=== PATIENT | female | born 1955 | race Two or more races ===

== ENCOUNTER 2016-12-28 23:24 | Inpatient (IN) | payer SELFPAY ==
[2016-12-29] MEDS ORDERED: Acetaminophen TAB* 325 MG PO ONE (00:29)
[2016-12-29] MEDS ORDERED: Morphine INJ* 4 MG/ML 1 ML CARPUJECT IV ONE ×4 (00:37→13:09)
[2016-12-29] MEDS ORDERED: Ondansetron INJ* 2 MG/ML VIAL IV ONE (00:37)
[2016-12-29] MEDS ORDERED: Morphine INJ* 4 MG/ML 1 ML CARPUJECT ONE ×2 (00:40→07:07)
[2016-12-29] MEDS ORDERED: Ondansetron INJ* 2 MG/ML VIAL ONE (00:40)
[2016-12-29] MEDS ORDERED: NS 0.9% 1000 ML* 1,000 ML IV SCH (00:45)
[2016-12-29 01:33] LABS: Hematocrit 39 % (35-47); Hemoglobin 13.4 g/dl (12.0-16.0); Mean Corpuscular HGB Conc 34 g/dl (31-36); Mean Corpuscular Hemoglobin 30 pg (27-31); Mean Corpuscular Volume 88 fL (80-97); Mean Platelet Volume 8 um3 (7.4-10.4); Red Blood Count 4.45 10^6/ul (4.0-5.4); Red Cell Distribution Width 13 % (10.5-15); White Blood Count 12.9 10^3/ul (3.5-10.8)
[2016-12-29 01:38] LABS: Albumin 4.4 g/dL (3.2-5.2); BUN/Creatinine Ratio 20.8 (8-20); Calcium 9.6 mg/dL (8.6-10.3); EGFR African American 105.9 (>60); EGFR Non-African American 82.3 (>60); Globulin 3.4 g/dL (2-4); Potassium 3.5 mmol/L (3.5-5.0); Total Bilirubin 0.4 mg/dL (0.2-1.0); Total Protein 7.8 g/dL (6.4-8.9)
[2016-12-29] MEDS ORDERED: Tetan/Diph/Pertus SYR(Tdap)* 0.5 ML SYR(BOOSTRIX) use SYR IM ONE (02:35)
[2016-12-29] MEDS ORDERED: Lidocaine 2% EPI 1:200000 MPF* 20 ML VIAL INJ ONE (03:09)
[2016-12-29] MEDS ORDERED: Lidocaine 2% EPI 1:200000 MPF* 20 ML VIAL ONE (03:10)
--- NOTE | 2016-12-29 03:46 | ED ---
Progress - Progress Note Progress Note: Gaping V shaped wound over superior central/midline scalp - 2cm on one side, 1.75 cm on other - deep to muscle cleaned and irrigated cleaned w/ iodine Anesthesia with 2%lidocain w/ epi - successful One 3-0 prolene suture in central wound; either end of V closed w/ joe - #7 total covered with triple anbx ointment hemodynamically stable - pt tolerated well
[2016-12-29] MEDS ORDERED: oxyCODONE TAB* 5 MG TAB PO ONE ×2 (04:19→04:20)
--- NOTE | 2016-12-29 08:25 | RAD ---
indication: Laceration to occiput after falling down stairs. COMPARISON: None A CT scan of the brain, maxillofacial bones and c-spine was performed without intravenous contrast enhancement. Contiguous axial sections were obtained from the lung apices through the vertex of the skull. BRAIN: The ventricles, cisterns and sulci exhibit mild symmetrical involutional changes. There is mild periventricular and subcortical white matter hypoattenuation. No significant focal abnormality or mass effect is seen. The mata-white differentiation is adequately maintained. Evidence of a large laceration is seen overlying the right of midline posterior vertex and parietal bone. There is no evidence for intracranial hemorrhage. The calvarium is intact without radiographically apparent fracture. The mastoid air cells are appropriately aerated. FACIAL BONES: Bones: There is no displaced fracture or dislocation. The orbital rim is intact. The zygomatic arch is intact. The pterygoid plates are intact. Right greater than left degenerative changes of the temporomandibular joints includes right sided flattening of the mandibular condyle. Orbits: The globes are round. The optic nerves are symmetric. The extraocular musculature is normal. There is no post septal or intraconal inflammatory change. There is no retrobulbar hematoma. Paranasal Sinuses: There is mild mucosal thickening of the bilateral maxillary sinuses, ethmoid air cells and frontal sinuses. C-SPINE: On the sagittal view images the vertebral bodies and bilateral facet joints are correctly aligned. The dens is intact and the atlantoaxial interval is not widened. Mild degenerative changes include loss of intervertebral disc height at the mid-level and lower cervical spine. There is mild uncovertebral hypertrophy at the same levels. There is no prevertebral soft tissue swelling. There is no hyperdense material in the cervical canal to indicate hemorrhage. The visualized musculature and soft tissues are normal. There is right greater than left atherosclerotic calcification at the carotid bulbs. There is no gross lymphadenopathy visualized. The visualized portion of the lung apices are clear. IMPRESSION: 1. Evidence of scalp laceration overlying the right of midline posterior vertex and parietal bone without acute intracranial hemorrhage, calvarial fracture, facial bone fracture or dislocated fracture of the cervical spine. 2. Chronic and degenerative changes described in the body of the report.
--- NOTE | 2016-12-29 08:30 | RAD ---
INDICATION: Pain. Fall. COMPARISON: None TECHNIQUE: Noncontrast axial source images were obtained from the hemidiaphragms to the symphysis pubis. This examination was ordered using a renal stone protocol which is performed without oral or intravenous contrast and therefore has inherent limitations when used to evaluate other intra-abdominal or intrapelvic pathology. Consider conventional contrast enhanced imaging if clinically indicated Lung bases: The lung bases are clear. Liver: The liver is normal in size. Noncontrast imaging shows no evidence of a hepatic mass or ductal dilatation. Gallbladder: Cholelithiasis. The gallstone appears the neck of the gallbladder. There is mild gallbladder distention. Spleen: The spleen is normal in size. The noncontrast CT appearance is normal. Pancreas: Noncontrast imaging shows no pancreatic mass or ductal dilitation. The pancreas appears mildly atrophic Adrenal glands: No masses are identified. Kidneys/Bladder: There is no evidence of nephrolithiasis or CT evidence of hydronephrosis. Noncontrast imaging shows no evidence of a renal mass. The bladder is unremarkable.. Adenopathy: There is no evidence of intraperitoneal or retroperitoneal adenopathy. Evaluation is limited without oral contrast. Fluid collections: There are no free or localized fluid collections. Vessels: The aorta and iliac vessels are normal in caliber. There are no significant atherosclerotic changes. The IVC appears normal Pelvic organs: The uterus and adnexa appear normal GI tract: Evaluation of the bowel is limited without oral contrast. The stomach, small bowel, and lower GI tract appear grossly normal. There are no obstructive findings. The appendix is visualized and appears normal. Soft tissues: No soft tissue abnormalities of the extraperitoneal abdomen or pelvis are identified. Osseous structures: There is a mild superior end plate compression deformity of T12 without significant bony retropulsion. This is evaluated on the concurrent CT lumbar spine. Please for to separate report. IMPRESSION: 1. A limited noncontrast CT examination was ordered 2. Acute T12 compression deformity. Please refer also to separate CT lumbar spine report. 3. Cholelithiasis with gallstone in the neck of the gallbladder.
--- NOTE | 2016-12-29 08:33 | RAD ---
INDICATION: Low back pain status post fall. COMPARISON: Comparison is made with a prior CT of the abdomen and pelvis from December 29, 2016. TECHNIQUE: Contiguous axial sections were obtained beginning above the T12 vertebra and continuing through the L5-S1 disc space. Images were reconstructed in the sagittal and coronal planes. FINDINGS: There is a mild compression fracture of the superior endplate of the T12 vertebral body with loss of height of approximately 15%. There is mild retropulsion of fracture fragments of approximately 3 mm. No significant spinal canal narrowing is present. The posterior elements appear intact. No other fractures are seen. At the L2-L3 level there is a mild broad-based disc bulge. No significant spinal canal or neural foraminal narrowing is seen. At the L3-L4 level there is a mild broad-based disc bulge. There are mild hypertrophic changes within the facet joints. There is mild spinal canal narrowing. No neural foraminal narrowing is seen. At the L4-L5 level there is a mild broad-based disc bulge and mild hypertrophic changes within the facet joints. There is mild to moderate spinal canal narrowing. No significant neural foraminal narrowing is seen. The L5-S1 level there is a minimal broad-based disc bulge. There are mild hypertrophic changes within the facet joints. No significant spinal canal or neural foraminal narrowing is seen. Note is made of gallstones. IMPRESSION: 1. MILD COMPRESSION FRACTURE OF THE SUPERIOR ENDPLATE OF THE T12 VERTEBRAL BODY. 2. MILD TO MODERATE LUMBAR SPONDYLITIC CHANGES. 3. CHOLELITHIASIS.
--- NOTE | 2016-12-29 08:40 | RAD ---
INDICATION: Left fifth finger injury. TECHNIQUE: 4 views of the left fifth finger were obtained. FINDINGS: There is diffuse soft tissue swelling. There are small fracture fragments present at the volar base of the middle and distal phalanges which appears slightly distracted. IMPRESSION: SLIGHTLY DISPLACED VOLAR PLATE FRACTURES BASES OF THE MIDDLE AND DISTAL PHALANGES.
--- NOTE | 2016-12-29 08:44 | RAD ---
INDICATION: Left ring finger injury. TECHNIQUE: An AP view of the hand and a single lateral view of the left ring finger was obtained. FINDINGS: There is mild soft tissue swelling at the proximal interphalangeal joint. The bones are normal alignment. No fracture is seen. IMPRESSION: SOFT TISSUE SWELLING, NO FRACTURE IS SEEN.
--- NOTE | 2016-12-29 08:46 | RAD ---
INDICATION: Laceration left third digit COMPARISON: None TECHNIQUE: A single lateral view is submitted. FINDINGS: No acute fractures identified on this single view. Suggest routine imaging if there is persistent concern. There is soft tissue swelling most prominent near the tuft. There is no foreign body. IMPRESSION: A SINGLE VIEW DEMONSTRATES NO FRACTURE OR FOREIGN BODY.
[2016-12-29] MEDS ORDERED: Acetaminophen TAB* 325 MG PO PRN (11:32)
[2016-12-29] MEDS: Cyclobenzaprine TAB* 10 MG PO PRN (12:13)
[2016-12-29] MEDS: Lidocaine PATCH 5%* 1 PATCH TRANSDERM SCH (12:13)
[2016-12-29] MEDS: oxyCODONE TAB* 5 MG TAB PO PRN ×2 (12:13→20:51)
--- NOTE | 2016-12-29 12:28 | RAD ---
INDICATION: T12 compression deformity. COMPARISON: CT lumbar spine December 29, 2016 TECHNIQUE: Noncontrast axial source images was performed from the thoracic inlet to the level the hemidiaphragms. Coronal and and sagittal reformatted images were generated. FINDINGS: Vertebrae: There is a fracture involving the superior endplate of the T12 vertebrae and the vertebral body. There is a 30% loss in vertical dimension of the vertebrae which does appear slightly more pronounced than on the recent CT of the lumbar spine. There is 3 mm of posterior retropulsion at the superior extent of the vertebrae. There is no evidence of posterior element involvement. There are no additional acute bony findings. Alignment: The thoracic vertebrae are normally aligned. Central Canal: There are no significant CT abnormalities of the central canal or foramina. MR imaging is a more sensitive method to evaluate the canal and foramina. Intervertebral disc spaces: The disc spaces are maintained. Soft tissues: There is minor paravertebral stranding/edema at the level of the compression deformity of T12. There is cholelithiasis. IMPRESSION: T12 COMPRESSION DEFORMITY DESCRIBED. MINOR INCREASED LOSS IN THE VERTICAL DIMENSION OF THE VERTEBRAE AND MINOR BONY RETROPULSION WITHOUT ASSOCIATED CANAL COMPROMISE
--- NOTE | 2016-12-29 13:26 | RAD ---
Indication: Chest pain. T12 fracture sustained in a fall. Comparison: Thoracic spine CT of the same date. Abdomen pelvis CT of the same date. Technique: Supine portable AP 1240 hours Report: Clear lungs and pleural spaces. No gross evidence for pneumothorax within limits of supine technique. Negative for mediastinal shift. The heart, pulmonary vasculature, and mediastinal contours are unremarkable. Based on correlation with CT minimal impaction fracture visualized involving the superior endplate of the T12 vertebral body. No gross abnormality of the paraspinal soft tissue contours. IMPRESSION: 1. Superior endplate T12 compression fracture as documented on CT. 2. No evidence for acute intrathoracic disease within limits of supine portable technique.
[2016-12-29] MEDS: Heparin VIAL(*) 5000 UNITS/ML VIAL (FIVE THOUSAND) SUBCUT SCH ×2 (13:56→20:52)
--- NOTE | 2016-12-29 15:35 | HP ---
CC: Dr. Kirkpatrick * HISTORY AND PHYSICAL: DATE OF ADMISSION: 12/29/16. ATTENDING PROVIDER: Dr. Narendra Haley * (DICTATED BY SOUMYA ROCA NP) PRIMARY CARE PROVIDER: She sees a physician in [facility]. We are going to try to get the contact information so that we can cc the reports, but as of right now we do not have that information. HISTORY OF PRESENT ILLNESS: Ms. Connell is a 61-year-old female patient who only carries a history of osteoporosis who is actually visiting a son from [facility] where she currently resides. She unfortunately is staying at a house that she was unfamiliar with and there was a landing with 2 doors on it, 1 door goes into the bedroom where she was staying and if you take a left and go down that door there is 14 steps to the basement. Unfortunately, the landing were she was, was not well lit and according to the family and to the patient, she pushed open the door, thought that she was going to be on level ground, and there was actually stairs there, and she fell down 14 steps. She did not lose consciousness. She did not have chest pain prior to or after when she did. She knew right where she was when she landed. She knew she was in the basement. The family heard a large banging noise, they came in to her aid, they called 911 immediately. They did not move her, they covered her with blankets. She denied having any loss of control of the lower extremities. No loss of control in the upper extremities. She denied having any numbness or tingling of the lower extremities. There is no loss of bowel or bladder pattern and she said that she was able to move her legs but no pain. Her biggest complains of pain was really in the lower abdomen, in the lower back. They brought her into the hospital. She underwent several rounds of imaging, ultimately found to have a T12 fracture. There has been no report of incontinence of stool or bladder. She denied having any again chest pain, shortness of breath, and she said she has been feeling well. She had not had any nausea, vomiting, no URI symptoms and said that she has been feeling up until today. Because of the T12 fracture we were asked to evaluate for admission of the patient with a neurosurgical consult. PAST MEDICAL HISTORY: Significant for osteoporosis. PAST SURGICAL HISTORY: She has had an exploratory laparotomy to the lower abdomen secondary to peritonitis and secondary to trauma. HOME MEDS: Include Fosamax 70 mg weekly. ALLERGIES TO MEDICATION: No known drug allergies. FAMILY HISTORY: Her mother is still alive with a history of hypertension. Father at the age 49 it is unknown why his demise was. SOCIAL HISTORY: She is a former smoker. She drinks alcohol rarely. The surrogate decision maker is her son and her . Again, she rarely drinks alcohol REVIEW OF SYSTEMS: There is no documented fever. She denied having any significant weight change. There was no double vision. She denies having any ear discharge. There was no rhinorrhea. No sore throat. No thyroid enlargement. She denied having any chest pain. Again, there was no loss of conscious, no pruritus and skin ulceration. Skin ulcerated to the scalp was the only skin ulceration. There was lower abdominal pain, but no chest pain. No orthopnea or nocturnal dyspnea. No nausea or vomiting. Review of 14 systems were completed all is negative. PHYSICAL EXAMINATION GENERAL: Ms. Connell is a 61-year-old female patient. She does not appear to be in any acute distress. She is awake. She is alert. She is oriented x3. VITAL SIGNS: Blood pressure 149/87, pulse 74, respirations 18, O2 sat of 97%, temperature of 98.2. HEENT: Head is atraumatic with the exception that she does have a laceration noted to the top part of her scalp, into the occipital region, which has now been sutured by the ED. Sclerae were anicteric, not pale. Pupils were equal to light. EOMs were is intact. Throat: Oral mucosa appeared to be moist. No oropharyngeal erythema. NECK: Supple. LUNGS: Clear to auscultation. No wheezes, rales or rhonchi. HEART: Sounds S1, S2. Regular rate and rhythm. No murmurs, rubs, or gallops. ABDOMEN: Soft, flat, and nontender. She had bowel sounds present. EXTREMITIES: She is moving the upper extremities with 5/5 strength. She is moving the lower extremities with 5/5 strength. Dorsi and plantarflexion were intact. She is able to raise both her lower extremities between 45 to 60 degrees ; it does not elicit pain down the back of the leg, but it does elicit pain in her lower back. Again sensation was intact to lower extremities grossly. RECTAL: The patient had good rectal tone. NEUROLOGIC: Awake, alert, oriented x3. Speech is clear. Tongue was midline. She is able to sit forward, but when she does, it does elicit pain to the lower spine. No gross obvious focal motor deficits are noted on my exam. SKIN: Intact; exception she has a laceration noted to the top part of her scalp , which was covered with bacitracin and there are sutures intact. LABORATORY DATA/DIAGNOSTIC STUDIES: Labs today reveal WBC of 12.9, RBC 4.45, hemoglobin of 13.4, hematocrit 39, and platelet count 219,000, INR 0.86, PTT 25.6. Sodium 135, potassium 3.5, chloride 103, bicarb 20, BUN 15, creatinine 0.72, glucose 174, calcium 9.6, total bili is 0.4, AST is 27, ALT 15, alk phos 81. Albumin was 4.4. She did have multiple imaging here in the ED. Brain CT, and this included the facial bone and the C-spine, impression: Evidence of scalp laceration overlying the right of the midline posterior vertex and parietal bone without acute intracranial hemorrhage, calvarial fracture, facial bone fracture, or dislocated fracture of the cervical spine. Chronic degenerative changes described in the body of the report. She had an abdominal-pelvis CT scan done today, which revealed, a limited noncontrast CT examination that was ordered, acute T12 compression deformity. Please refer to also separate CT spine report , cholelithiasis with gallstone in the neck of the gallbladder. She did have a lumbar spine CT, which revealed mild compression fracture of the superior endplate of T12 body, mild-to- moderate lumbar spondylotic changes, cholelithiasis. Finger x-ray showed a slightly displaced volar plate fractures , bases of the middle and distal phalanges. She had a left ring finger injury, which showed soft tissue swelling, no fracture seen. She also had an x-ray of the left third digit demonstrating no fracture or foreign body. Old medical records reviewed, limited. ASSESSMENT AND PLAN: Ms. Connell is a 61-year-old female patient who sustained a fall, now with T12 fracture. She will be admitted under inpatient status for: 1. T12 fracture. Again, she appears to be neurologically intact at this point. She has good rectal tone. I am going to get a dedicated thoracic spine CT to make sure there is not any more damage to the thoracic spine and also I will order a portable chest x-ray as well to make sure she did not sustain any rib fractures. She again appears to be neurologically intact. She will be on bed rest, TLSO brace will be placed. I will offer pain control. If the TLSO brace is intact, we could consider ambulating the patient to see how she does with PT. I did touch base of Dr. Kirkpatrick who will be evaluating the patient again. She had no known neurologic deficits identified on my exam; she appears to be stable. I did order pain medications, Flexeril and Lidoderm patch, for pain control. 2. Osteoporosis. She takes Fosamax. She does not know the dose, I am assuming it is probably 70 mg weekly. She takes these on Thursday. We will start that medication. 3. DVT prophylaxis. She will be placed on SCDs and heparin while she is on bed rest. 4. Code status: Full code. 5. Fluids, electrolytes, and nutrition. She can have a regular diet. TIME SPENT: Time spent on admission 60 minutes, greater than half the time spent [id number] with the patient obtaining my history and physical; other half time spent going over the plan of care with the patient and implementing plan of care. I did discuss the plan of care with my attending, Dr. Haley, he is in agreement. SOUMYA ROCA NP [id number]/[facility] #: [id number] JAMIL
[2016-12-29] MEDS: Lidocaine Patch REMOVE* 1 NOTE MISC SCH (20:52)
[2016-12-29] MEDS ORDERED: Morphine INJ* 2 MG/ML 1 ML SYRINGE (TWO MG - NEW SYRINGE VERSION) IV PRN (21:07)
[2016-12-29] MEDS: Docusate CAP* 100 MG PO SCH (22:30)
[2016-12-30] MEDS: Heparin VIAL(*) 5000 UNITS/ML VIAL (FIVE THOUSAND) SUBCUT SCH ×3 (06:26→22:22)
[2016-12-30] MEDS: oxyCODONE TAB* 5 MG TAB PO PRN ×3 (06:28→22:22)
[2016-12-30 06:58] LABS: Hematocrit 38 % (35-47); Hemoglobin 13.1 g/dl (12.0-16.0); Mean Corpuscular HGB Conc 34 g/dl (31-36); Mean Corpuscular Hemoglobin 30 pg (27-31); Mean Corpuscular Volume 89 fL (80-97); Mean Platelet Volume 8 um3 (7.4-10.4); Red Blood Count 4.31 10^6/ul (4.0-5.4); Red Cell Distribution Width 13 % (10.5-15); White Blood Count 9.3 10^3/ul (3.5-10.8)
[2016-12-30 07:12] LABS: Calcium 8.9 mg/dL (8.6-10.3); EGFR African American 128.2 (>60); EGFR Non-African American 99.7 (>60); Potassium 3.6 mmol/L (3.5-5.0)
[2016-12-30] MEDS: Docusate CAP* 100 MG PO SCH ×2 (09:51→22:21)
[2016-12-30] MEDS: Lidocaine PATCH 5%* 1 PATCH TRANSDERM SCH (09:51)
--- NOTE | 2016-12-30 14:19 | ED ---
Destiny Farley Alfonso, scribed for Joshua Buckner MD on 12/29/16 at 1023 . Progress - Progress Note Progress Note: Dr. Delgado Consulted Erwin Ndiaye DO (neurosurgery) who recommended a TLSO brace. Discussed with the patient that since she will have to be fitted for this brace, she should be admitted. The patient understands and agrees. Consulted Dr. Haley (hospitalist) who agrees to admit. Course/Dx - Diagnoses Provider Diagnoses: Thoracic spine fracture - Provider Notifications Discussed Care Of Patient With: Narendra Haley Instructed by Provider To: Admit As Inpatient The documentation as recorded by the Destiny fernando Alfonso accurately reflects the service I personally performed and the decisions made by Sita landeros Jerry, MD.
--- NOTE | 2016-12-30 14:56 | CONSULT ---
Consult Consult: Neurosurgery Consult Date of consult: 12/30/16 Date of admission: 12/30/16 Referring provider: Marc Alvarez NP Reason for consult: T12 fracture HPI: This is a 61 year old female with past medical history of osteoporosis who presented to the [facility] ED after falling down the stairs at her son's home. She is visiting from [facility]. She complains of significant mid back pain, worse with movement in bed and improved with laying still. She does report mild pain radiating around the thoracic chest/abdomen, present today but not immediately after fall. She also complains of pain in the right shoulder and elbow, and the left fifth digit. She denies neck pain radiating into the upper extremities, denies numbness, tingling of the upper extremities. She denies numbness, tingling, and pain in the lower extremities. She has not been up out of bed so she is unable to determine weakness. She denies headache although reports localized pain at the laceration site at the mid to frontal scalp. Denies nausea , chest pain and difficulty breathing. Past medical history: 1. Osteoporosis Past surgical history: 1. Exploratory abdominal surgery many years ago Home medications: 1. Alendronate (NF) [Fosamax (NF)] 70 mg PO WEEKLY 12/29/16 [History Confirmed 12/29/16] Allergies: No known allergies Social history: This patient is a nonsmoker and does not consume alcohol. She lives in [facility] and is in the [place] visiting her son. ROS: Full ROS completed and pertinent findings stated in HPI. All others negative. Physical exam: Vital Signs: Temp Pulse Resp BP Pulse Ox 98.8 F 78 17 109/96 98 12/30/16 11:14 12/30/16 11:14 12/30/16 13:13 12/30/16 11:14 12/30/16 11:14 General: Alert and oriented. No distress. Laying comfortably in bed. HEENT: Laceration to the right mid to frontal scalp closed with joe, no swelling or erythema. EOMI, PERRL, sclerae anicteric. Gross hearing intact. Moist mucus membranes. Neck: Mild tenderness to palpation of the posterior neck. Supple, symmetric and without obvious deformity. CV: Radial pulsed 2+ and equal. Pedal pulses palpable. Lungs: Breathing is nonlabored. Lungs are clear. Abdomen: The abdomen is flat. Normoactive bowel sounds. Soft and nondistended. Mild tenderness of the LLQ secondary to heparin injection per patient. Neuro: Speech is clear and coherent. Answers questions appropriately. CN II-XII intact. Pain with strength testing of RUE. Strength 5/5 in upper and lower extremities. Sensation intact throughout. Spine: Tenderness to light palpation of mid spine. No swelling, erythema or ecchymosis. Extremities: Pain with palpation of the right shoulder, right lateral elbow. Splint present on left fifth digit. Skin: Head laceration closed with joe. Erythema of the bilateral thenar pads , baseline per patient. Imagin. CT of the thoracic spine on 12/29/16 shows T12 compression fracture. Assessment and Plan: This is a 61 year old female with past medical history significant for osteoporosis who presented to the [facility] ED after a fall down stairs. She complains of mid back pain worse with movement. Neuro intact. She sustained a T12 compression fracture during the fall. She will need a TLSO brace to wear when out of bed. Until the brace is fitted and provided, she will remain on bedrest. Continue pain management. There is not indication for surgery at this time.
--- NOTE | 2016-12-30 15:30 | RAD ---
INDICATION: Right shoulder pain COMPARISON: None TECHNIQUE: Routine frontal, Y and axial views were obtained. FINDINGS: The bony structures, joint spaces, and soft tissues are normal for age. IMPRESSION: NO ACUTE BONY FINDINGS.
--- NOTE | 2016-12-30 15:34 | RAD ---
Indication: Shoulder pain, elbow pain. 2 views of the right elbow demonstrates no definite joint effusion. No fracture is noted. Distal humerus is grossly unremarkable. IMPRESSION: Unremarkable right elbow.
[2016-12-30] MEDS ORDERED: Morphine ORAL.SOLN 10 mg* 2 MG/ML UDC 5 ml PO ONE (15:40)
--- NOTE | 2016-12-30 17:25 | PN ---
Subjective Date of Service: 12/30/16 Interval History: Patient complains of increased pain in right elbow and shoulder radiating up the back of the neck this morning which is worse than her back pain. No ecchymosis, swelling, bony point tenderness, decreased ROM, crepitus, or deformity. XR negative for broken bone and pain decreased throughout the day. TLSO brace ordered and applied, patient able to to PT with brace on, but will need help at home with standing per PT. Also recommended OT evaluation for shower chair without brace. No other complaints. Pain 0/10 at rest. Samara 5/10 when walking. Pain responded well to oral oxycodone all day except for first application of brace. Supplemented with 5mg of morphine to good effect, but patient became slightly hypotensive after dose and was dizzy with standing. No other complaints. Family History: Unchanged from Admission Social History: Unchanged from Admission Past Medical History: Unchanged from Admission Objective Active Medications: Acetaminophen (Tylenol Tab*) 650 mg PO Q4H PRN PRN Reason: FEVER/PAIN Last Admin: 12/30/16 13:12 Dose: 650 mg Alendronate Sodium (Fosamax (Nf)) 70 mg PO WEEKLY [facility] PRN Reason: Protocol Cyclobenzaprine HCl (Flexeril Tab*) 10 mg PO TID PRN PRN Reason: SPASMS Last Admin: 12/29/16 12:13 Dose: 10 mg Docusate Sodium (Colace Cap*) 100 mg PO BID [facility] Last Admin: 12/30/16 09:51 Dose: 100 mg Heparin Sodium (Porcine) (Heparin Vial(*)) 5,000 units SUBCUT Q8HR [facility] Last Admin: 12/30/16 13:12 Dose: 5,000 units Lidocaine (Lidoderm 5% Patch*) 1 patch TRANSDERM DAILY [facility] Last Admin: 12/30/16 09:51 Dose: 1 patch Morphine Sulfate (Morphine Inj (Syringe)*) 2 mg IV Q4H PRN PRN Reason: PAIN - MILD Last Admin: 12/30/16 01:18 Dose: 2 mg Oxycodone HCl (Roxycodone Tab*) 10 mg PO Q6H PRN PRN Reason: PAIN Last Admin: 12/30/16 13:13 Dose: 10 mg Pharmacy Profile Note (Lidocaine Patch Remove*) 1 note N/A 2100 [facility] Last Admin: 12/29/16 20:52 Dose: 1 note Temp Pulse Resp BP Pulse Ox 98.8 F 78 18 109/96 98 12/30/16 11:14 12/30/16 11:14 12/30/16 16:01 12/30/16 11:14 12/30/16 11:14 Oxygen Devices in Use Now: None Appearance: Patient is a 61yo female who appears stated age and is sitting in the exam bed in NAD. Eyes: No Scleral Icterus, PERRLA Ears/Nose/Mouth/Throat: NL Teeth, Lips, Gums, Clear Oropharnyx, Mucous Membranes Moist Neck: NL Appearance and Movements; NL JVP Respiratory: Symmetrical Chest Expansion and Respiratory Effort, Clear to Auscultation Cardiovascular: NL Sounds; No Murmurs; No JVD, RRR, No Edema Abdominal: NL Sounds; No Tenderness; No Distention, No Hepatosplenomegaly Lymphatic: No Cervical Adenopathy Extremities: - - Right arm exam as in HPI. Redness on medial aspec of bilateral palms. No other ecchymosis noted on exam. Left fifth digit in splint. Skin: No Rash or Ulcers, No Nodules or Sclerosis Neurological: Alert and Oriented x 3, NL Sensation, NL Muscle Strength and Tone , - - Patellar and achilles reflexes 2+ B/L. Result Diagrams: 12/30/16 06:45 12/30/16 06:43 Additional Lab and Data: Lab Results 12/29/16 12/29/16 12/29/16 Range/Units 01:12 01:12 01:12 WBC 12.9 H (3.5-10.8) 10^3/ul RBC 4.45 (4.0-5.4) 10^6/ul Hgb 13.4 (12.0-16.0) g/dl Hct 39 (35-47) % MCV 88 (80-97) fL MCH 30 (27-31) pg MCHC 34 (31-36) g/dl RDW 13 (10.5-15) % Plt Count 219 (150-450) 10^3/ul MPV 8 (7.4-10.4) um3 Neut % (Auto) 82.9 (38-83) % Lymph % (Auto) 11.0 L (25-47) % [place] % (Auto) 5.4 (1-9) % Eos % (Auto) 0.4 (0-6) % Baso % (Auto) 0.3 (0-2) % Absolute Neuts (auto) 10.7 H (1.5-7.7) 10^3/ul Absolute Lymphs (auto) 1.4 (1.0-4.8) 10^3/ul Absolute Monos (auto) 0.7 (0-0.8) 10^3/ul Absolute Eos (auto) 0.1 (0-0.6) 10^3/ul Absolute Basos (auto) 0 (0-0.2) 10^3/ul Absolute Nucleated RBC 0.01 10^3/ul Nucleated RBC % 0 INR (Anticoag Therapy) 0.86 L (0.89-1.11) APTT 25.6 L (26.0-36.3) seconds Sodium 135 (133-145) mmol/L Potassium 3.5 (3.5-5.0) mmol/L Chloride 103 (101-111) mmol/L Carbon Dioxide 20 L (22-32) mmol/L Anion Gap 12 H (2-11) mmol/L BUN 15 (6-24) mg/dL Creatinine 0.72 (0.51-0.95) mg/dL Est GFR ( Amer) 105.9 (>60) Est GFR (Non-Af Amer) 82.3 (>60) BUN/Creatinine Ratio 20.8 H (8-20) Glucose 174 H (70-100) mg/dL Calcium 9.6 (8.6-10.3) mg/dL Total Bilirubin 0.40 (0.2-1.0) mg/dL AST 27 (13-39) U/L ALT 15 (7-52) U/L Alkaline Phosphatase 81 (34-104) U/L Total Protein 7.8 (6.4-8.9) g/dL Albumin 4.4 (3.2-5.2) g/dL Globulin 3.4 (2-4) g/dL Albumin/Globulin Ratio 1.3 (1-3) Assess/Plan/Problems-Billing Assessment: Patient is a 61yo female with a PMH significant only for osteoporosis who presents after fall down 15 stairs on 12/29 with T12 fracture and left 3rd and 5th digit fractures. Patient is neurologically intact and has been fitted with TLSO brace. - Patient Problems (1) T12 compression fracture Current Visit: Yes Status: Acute Code(s): S22.080A - WEDGE COMPRESSION FRACTURE OF T11-T12 VERTEBRA, INIT SNOMED Code(s): 005094877 Comment: TLSO brace fitted with significant increase in pain. Patient tolerating well at this time. PT/OT for use of brace. Adequate pain control with Tylenol and Oxycodone. 1 time dose of morphine 5mg PO caused hypotension. Appreciate Neurosurgical input, no need for surgery at this time. (2) Fracture of phalanx of finger of left hand Current Visit: Yes Status: Acute Code(s): S62.609A - FRACTURE OF UNSP PHALANX OF UNSP FINGER, INIT FOR CLOS FX SNOMED Code(s): 75614053 Comment: Fractures of Middle and fifth digits. Splinted, no significant pain per patient. (3) Osteoporosis Current Visit: Yes Status: Acute Code(s): M81.0 - AGE-RELATED OSTEOPOROSIS W /O CURRENT PATHOLOGICAL FRACTURE SNOMED Code(s): 12688144 Comment: Continue Fosfomax weekly. (4) Full code status Current Visit: Yes Status: Acute Code(s): Z78.9 - OTHER SPECIFIED HEALTH STATUS SNOMED Code(s): 452720581 (5) DVT prophylaxis Current Visit: Yes Status: Acute Code(s): NXE4560 - SNOMED Code(s): 993889593 Comment: SQ Heparin. Status and Disposition: Patient is admitted inpatient, will be discharged in morning if able.
[2016-12-30] MEDS: Cyclobenzaprine TAB* 10 MG PO PRN (22:22)
[2016-12-30] MEDS: Lidocaine Patch REMOVE* 1 NOTE MISC SCH (22:28)
[2016-12-30] MEDS ORDERED: Morphine ORAL.SOLN 10 mg* 2 MG/ML UDC 5 ml PO PRN (23:45)
[2016-12-31] MEDS: oxyCODONE TAB* 5 MG TAB PO PRN ×2 (05:49→16:03)
[2016-12-31] MEDS: Heparin VIAL(*) 5000 UNITS/ML VIAL (FIVE THOUSAND) SUBCUT SCH ×2 (05:49→14:59)
[2016-12-31 07:48] LABS: Hematocrit 38 % (35-47); Hemoglobin 13.3 g/dl (12.0-16.0); Mean Corpuscular HGB Conc 35 g/dl (31-36); Mean Corpuscular Hemoglobin 31 pg (27-31); Mean Corpuscular Volume 88 fL (80-97); Mean Platelet Volume 9 um3 (7.4-10.4); Red Cell Distribution Width 13 % (10.5-15); White Blood Count 8.1 10^3/ul (3.5-10.8)
[2016-12-31 08:10] LABS: BUN/Creatinine Ratio 19.7 (8-20); EGFR African American 128.2 (>60); EGFR Non-African American 99.7 (>60)
[2016-12-31] MEDS ORDERED: Morphine TAB Extended Release (*) 15 MG TAB.ER PO SCH (09:00)
[2016-12-31] MEDS: Docusate CAP* 100 MG PO SCH (09:05)
[2016-12-31] MEDS: Lidocaine PATCH 5%* 1 PATCH TRANSDERM SCH (09:06)
[2016-12-31 15:19] VITALS: BP 120/60
--- NOTE | 2017-01-01 06:36 | DS ---
DISCHARGE SUMMARY: DATE OF ADMISSION: 12/29/16 DATE OF DISCHARGE: 12/31/16 PRIMARY CARE DOCTOR: Will be Dr. Sierra. The patient's main primary care doctor is in [place]. MY ATTENDING WHILE IN THE HOSPITAL: Dr. Abad Chris * (Dictated by ERICK Zee) PRIMARY DISCHARGE DIAGNOSES: 1. Fall. 2. Compression fracture of T12. 3. Nondisplaced fracture of middle and distal phalanx of left hand. 4. Prediabetes. SECONDARY DISCHARGE DIAGNOSIS: Osteoporosis. CONSULTING PROVIDERS: Dr. Earl Kirkpatrick; Rosa Ortiz of Neurosurgery. MEDICATIONS ON DISCHARGE: 1. Alendronate 70 mg p.o. weekly. 2. Tylenol 650 mg p.o. q.4 hours as needed. 3. Flexeril 10 mg p.o. t.i.d. as needed. 4. Colace 100 mg p.o. b.i.d. 5. MS Contin 15 mg p.o. q.12 hours. 6. Oxycodone 10 mg p.o. q.6 hours as needed. New medications on discharge: 1. Tylenol. 2. Flexeril. 3. MS Contin. 4. Oxycodone. 5. Colace. STUDIES DONE WHILE IN THE HOSPITAL: 1. Brain CT from 12/29/16 read as evidence of scalp laceration overlying the right of midline posterior vertex and parietal bone without acute intracranial hemorrhage, calvarial fracture, facial bone fracture, or dislocated fracture of the cervical spine. Chronic and degenerative changes described in the body of the report. 2. Cervical spine CT read as same as brain CT. 3. Maxillofacial CT read as same as brain CT. 4. Abdominal and pelvis CT read as a limited noncontrast CT, acute T12 compression deformity. 5. Please also refer to a separate CT lumbar spine report. Cholelithiasis with gallstones in the neck of the gallbladder. Lumbar spine CT read as mild compression fracture of the superior endplate of T12 vertebral body, mild-to- moderate lumbar spondylotic changes. Of note, there is only mild retropulsion of fracture fragments of approximately 3 mm. 6. Finger x-ray of the left fifth finger shows slightly displaced volar plate fracture at the bases of the mid and distal phalanges. Finger x-ray of the left ring finger shows soft tissue swelling and no fracture. Finger x-ray of the third digit shows no fracture or foreign body. 7. Thoracic spine CT read as T12 compression fracture deformity as described. Minor increased loss in the vertical dimension of the vertebrae and minor bony retropulsion without associated canal compromise. 8. Chest x-ray read as inferior endplate T12 compression fracture documented on CT. No evidence of acute intrathoracic disease. 9. Elbow x-ray from 12/30/16 read as unremarkable right elbow. 10. Shoulder x-ray from 12/30/16 read as no acute bony findings. HOSPITAL COURSE: This is a brief summary of the patient's presentation. For more details, please see the history and physical from Marc Alvarez on . In brief, the patient is a 61-year-old female with a history of osteoporosis who is visiting from [facility], who fell down a flight of stairs accidentally due to her unfamiliarity with the house. The patient fell down 14 stairs, hit her head, and did not lose consciousness. The patient was not moved by her family before EMS got there. The patient was taken to the emergency department and had the imaging as described above. The patient had no other symptoms, but musculoskeletal pain. No neurologic deficits. The patient was admitted for a T12 fracture. Neurosurgery was consulted and a TLSO brace off the shelf was recommended. The patient had significantly increased pain in her right shoulder and elbow on 12/30/16 that was greater in her back, worse with movement. No deformity or bony point tenderness. X-rays were ordered anyway, which showed no fracture. The patient's elbow and shoulder pain subsided. The patient was treated with oxycodone and as needed morphine on the first day inpatient and this was relatively adequate at controlling her pain. The patient was fitted for her TLSO brace in the evening of 12/30/16 and was seen by Physical Therapy where she got out of bed. The pain was the worst in the patient's hospitalization while she was being fitted for the brace and the patient then had decreased pain with the brace, but was hypotensive with her first dose of morphine with some lightheadedness, possibly also related to pain. The patient was kept overnight for monitoring. In the morning, the patient's pain was still relatively uncontrolled despite morphine and oxycodone dosing. The patient was switched to MS Contin 15 mg p.o. b.i.d. and tolerated the first dose well with oxycodone for breakthrough pain. The patient was seen by occupational therapy, by physical therapy again and the family was instructed in how to care for her spine and use the TLSO brace. The patient was in agreement with discharge. The patient had no insurance. So, special programs were involved for this population to help get her her medications. The patient will follow up with [facility] providers who work with her lack of insurance. The patient had persistently elevated glucoses while fasting in the low 100s on her daily blood work and hemoglobin A1c was 6.0. The patient was informed of this, but no action was taken due to her living in [facility]. PHYSICAL EXAM ON DAY OF DISCHARGE: General: The patient is a 61-year-old female who appears stated age lying in the bed, in no acute distress. HEENT: There is a midline scalp laceration on the back of the head without signs of discharge or inflammation; normocephalic. Sclerae anicteric. No conjunctival injection. Mucous membranes moist. Normal teeth. No trauma to the interior of the mouth. Pharynx nonerythematous. Neck: Supple, nontender. No point tenderness over the cervical spine. Cardiac: Regular rate and rhythm. No clicks, murmurs, gallops or rubs. Respiratory: Clear to auscultation bilaterally. Good air exchange bilaterally. No wheezes, rales or rhonchi. Abdomen: Bowel sounds present in all four quadrants and normoactive. No tenderness to palpation. Genitourinary: No CVA tenderness or suprapubic tenderness. Musculoskeletal: The patient has pain with movement of her right arm but is significantly decreased from previous exam. There is no deformity, popping, crepitus or bony point tenderness. There is no ecchymosis or swelling. The patient has a bruise on the left side of her lower back below the costovertebral margin, which is significantly tender to palpation. There is no stepoff on the thoracic or lumbar spine. There is no pain with palpation elsewhere in the back. There is significant pain with movement. No other deformity noted on the body. The patient has a splint on her left pinky finger. Neurologic: Cranial nerves II through XII grossly intact. Gait: Limited, gait changed by TLSO brace, but otherwise normal. Normal sensation and motor strength in the lower extremities. No bowel or bladder dysfunction. Quadriceps and Achilles reflex is 2+ bilaterally. Psychiatric: Pleasant and cooperative, nonsedated. Alert and oriented x3. LABORATORY DATA ON DAY OF DISCHARGE: White blood cell count 8.1, hemoglobin 13.3, platelet count 182. Sodium 132, potassium 4.0, chloride 99, creatinine 0.61, BUN 12, glucose 121, hemoglobin A1c is 6.0, calcium 9.0. DISCHARGE PLAN: The patient will be discharged to the care of her family who will be available between her two sons, her daughter and her brother for 24- hour care. The patient needs assistance with standing, but was doing very well walking independently with a walker before discharge. The patient will need assistance with using a shower chair and bathing around her brace. Family stated that they were comfortable with this and that they would be able to assist her. The patient should take MS Contin scheduled and taper as tolerated by the patient for pain control. The patient has oxycodone for breakthrough pain, which should be used sparingly to prevent oversedation and hypotension. The patient should return to the hospital for any neurological deficits. The patient's activity is as tolerated with a TLSO brace on at all times when out of bed or moving in bed. The patient should follow up with Orthopedics for the little finger of her left hand, Neurosurgery for her spinal fracture, and Dr. Sierra for general medical care including refills on her pain medications as needed. She only has a 14-day supply. Repeat imaging to be determined by Neurosurgery at followup. DIET: Consistent carbohydrate due to prediabetes. TIME SPENT: Approximately 75 minutes were spent on this discharge, 45 of which spent [id number] with the patient obtaining history and physical and talking with the family about treatment options and the nature of her diagnosis. ERICK ZEE [id number]/[facility] #: [id number] JAMIL
[2017-01-03] MEDS ORDERED: Alendronate (NF) 70 MG TAB PO SCH (09:00)
== END 2016-12-31 16:45 | disposition home or self-care (01) | DRG 502 ==
LOC: EDBD → ED 23:24 → MED 12-29 11:30 → OBSVTOIN 12-30 16:34
PROVIDERS: ADMIT Hospitalist; ATTEND Internal Medicine
PROC: 0JQ00ZZ Repair Scalp Subcutaneous Tissue and Fascia, Open Approach (ICD-10-PCS; principal; 2016-12-30)
DX: S22.089A Unspecified fracture of T11-T12 vertebra, initial encounter for closed fracture (principal); I95.9 Hypotension, unspecified; S62.603A Fracture of unspecified phalanx of left middle finger, initial encounter for closed fracture; K80.20 Calculus of gallbladder without cholecystitis without obstruction; M81.0 Age-related osteoporosis without current pathological fracture; W10.9XXA Fall (on) (from) unspecified stairs and steps, initial encounter; S62.607A Fracture of unspecified phalanx of left little finger, initial encounter for closed fracture; R73.03 Prediabetes; Z82.49 Family history of ischemic heart disease and other diseases of the circulatory system; Z87.891 Personal history of nicotine dependence; Y92.009 Unspecified place in unspecified non-institutional (private) residence as the place of occurrence of the external cause
CPT/HCPCS: 36415; 70450; 70486; 71010; 72125; 72128; 72131; 73140; 74176; 80048; 80053; 83036; 85025; 85610; 85730; 90715; A9270-GY; G0378; J1644; J2270; J2405

== ENCOUNTER 2017-01-09 13:15 | Emergency (ER) | payer SELFPAY ==
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
[2017-01-09 14:45] VITALS: BP 125/74
== END 2017-01-09 14:45 | disposition home or self-care (01) ==
LOC: ED 13:15
DX: Z48.02 Encounter for removal of sutures (principal); I10 Essential (primary) hypertension; M81.0 Age-related osteoporosis without current pathological fracture; Z87.891 Personal history of nicotine dependence
CPT/HCPCS: 99281